=== PATIENT | male | born 1970 | race African-American/Black ===

== ENCOUNTER 2018-06-15 15:03 | Inpatient (IN) | payer MEDICAID ==
[~2018-06-15] VITALS: Ht 185.4 cm; Wt 91.3 kg
[2018-06-15] MEDS ORDERED: FURO40I PO (15:20)
[2018-06-15] MEDS ORDERED: RIVA10 PO (15:20)
[2018-06-15] MEDS ORDERED: KETOROLAC TROMETHAMINE 60 MG/2 ML VIAL IM ONE (15:30)
[2018-06-15] MEDS ORDERED: FURO40 PO (15:32)
[2018-06-15 16:59] LABS: BASOPHILS % (AUTO) 0.5 % (0.0-2.0); EOSINOPHILS % (AUTO) 0.1 % (1.0-6.0); HEMATOCRIT 49.3 % (41-53); LYMPHOCYTES # (AUTO) 1.1 K/uL (1.0-4.8); LYMPHOCYTES % (AUTO) 14.1 % (22.0-44.0); MEAN CORPUSCULAR HGB CONC 32.4 G/dL (31.0-37.0); MEAN CORPUSCULAR VOLUME 86 fL (80-100); MONOCYTES # (AUTO) 0.5 K/uL (0.1-1.0); MONOCYTES % (AUTO) 6.8 % (2.0-9.0); NEUTROPHILS # (AUTO) 6.2 K/uL (1.8-7.7); NEUTROPHILS % (AUTO) 78.5 % (40.0-70.0); RED CELL DISTRIBUTION WIDTH 16.7 % (11.5-14.5)
[2018-06-15 17:12] LABS: CALCIUM, TOTAL 9.5 mg/dL (8.8-10.5); CREATININE 2.17 mg/dL (0.60-1.30); POTASSIUM 4.9 mmol/L (3.5-5.1)
[2018-06-15 17:16] LABS: PROTHROMBIN TIME 30.3 SEC (9.4-11.6)
[2018-06-15 17:36] LABS: ALBUMIN 2.5 g/dL (3.4-5.0); BILIRUBIN,TOTAL 7.5 mg/dL (0.1-1.0); TOTAL PROTEIN, SERUM 7.6 g/dL (6.4-8.2)
[2018-06-15 17:40] LABS: AMPHET/METH SCREEN,URINE POSITIVE (NEGATIVE); BARBITURATE SCREEN, URINE NEGATIVE (NEGATIVE); BENZODIAZEPINES SCREEN,URINE NEGATIVE (NEGATIVE); CANNABINOID SCREEN,URINE NEGATIVE (NEGATIVE); COCAINE SCREEN,URINE NEGATIVE (NEGATIVE); METHADONE SCREEN, URINE NEGATIVE (NEGATIVE); OPIATE SCREEN,URINE POSITIVE (NEGATIVE)
[2018-06-15 17:42] LABS: APPEARANCE,URINE CLEAR (CLEAR); BILIRUBIN,URINE PRELIM. POSITIVE (NEGATIVE); GLUCOSE, URINE (UA) NEGATIVE (NEGATIVE); KETONES,URINE NEGATIVE (NEGATIVE); LEUKOCYTE ESTERASE ,URINE TRACE (NEGATIVE); NITRATE,URINE NEGATIVE (NEGATIVE); OCCULT BLOOD,URINE NEGATIVE (NEGATIVE); PROTEIN,URINE POS 1+ (NEGATIVE)
[2018-06-15 17:43] LABS: RBC,URINE None Seen /HPF (0-2)
[2018-06-15 17:44] LABS: BACTERIA,URINE Few /HPF (None Seen); SQUAMOUS EPITHELIAL CELL,UR Few /LPF (None Seen)
[2018-06-15] MEDS ORDERED: FUROSEMIDE 40 MG/4 ML VIAL IVP ONE (17:45)
[2018-06-15 17:48] LABS: PLATELET COUNT (AUTO) 57 K/uL (150-450)
[2018-06-15 18:03] LABS: D-DIMER > 35.20 mg/L FEU (0.00-0.50)
[2018-06-15 18:12] LABS: PHENCYCLIDINE SCREEN,URINE NEGATIVE (NEGATIVE)
[2018-06-15 19:23] LABS: CREATININE,URINE RANDOM 119.9 mg/dL (30.0-125.0)
[2018-06-15] MEDS ORDERED: ACETAMINOPHEN 325 MG TABLET PO PRN ×2 (20:00→21:00)
[2018-06-15] MEDS ORDERED: 0.9% SODIUM CHLORIDE 10 ML SYRINGE IVP PRN (20:00)
[2018-06-15 20:45] VITALS: BP 91/67
[2018-06-15] MEDS ORDERED: BISACODYL 10 MG RECTAL RECTAL SUPPOSITORY PR PRN (21:00)
[2018-06-15] MEDS ORDERED: ALBUTEROL SULFATE 2.5 MG/0.5 ML NEB SOLUTION NEB PRN (21:00)
[2018-06-15] MEDS ORDERED: HEPARIN SODIUM,PORCINE 5,000 UNITS/ML VIAL SQ SCH (21:00)
[2018-06-15] MEDS ORDERED: MORPHINE SULFATE 2 MG/ML SYRINGE IVP PRN (21:15)
[2018-06-15] MEDS ORDERED: SODIUM CHLORIDE 0.45% 1,000 ML IV ONE (21:15)
[2018-06-15] MEDS: DOCUSATE SODIUM 100 MG CAPSULE PO SCH (21:46)
[2018-06-15 23:37] VITALS: BP 91/61
[2018-06-16 04:15] VITALS: BP 108/60
[2018-06-16 07:39] VITALS: BP 98/62
[2018-06-16] MEDS: DOCUSATE SODIUM 100 MG CAPSULE PO SCH ×2 (08:36→20:10)
[2018-06-16] MEDS: PANTOPRAZOLE SODIUM 40 MG DR TABLET PO SCH (08:36)
[2018-06-16] MEDS ORDERED: ASPIRIN 81 MG CHEWABLE TABLET PO SCH (09:00)
[2018-06-16 09:45] LABS: TROPONIN I 0.09 ng/mL (0.00-0.05)
[2018-06-16 10:26] LABS: BASOPHILS % (AUTO) 0.5 % (0.0-2.0); EOSINOPHILS % (AUTO) 0.1 % (1.0-6.0); HEMOGLOBIN 14.1 g/dL (13.5-17.5); LYMPHOCYTES # (AUTO) 0.8 K/uL (1.0-4.8); LYMPHOCYTES % (AUTO) 9.3 % (22.0-44.0); MEAN CORPUSCULAR HEMOGLOBIN 28.4 pg (26.0-34.0); MEAN CORPUSCULAR HGB CONC 32.9 G/dL (31.0-37.0); MEAN CORPUSCULAR VOLUME 86 fL (80-100); MONOCYTES # (AUTO) 0.3 K/uL (0.1-1.0); MONOCYTES % (AUTO) 3.4 % (2.0-9.0); NEUTROPHILS # (AUTO) 7.2 K/uL (1.8-7.7); PLATELET COUNT (AUTO) 57 K/uL (150-450); RED BLOOD CELL COUNT(AUTO) 4.98 MIL/uL (4.50-5.90); RED CELL DISTRIBUTION WIDTH 16.4 % (11.5-14.5)
[2018-06-16 10:27] LABS: NEUTROPHILS % (AUTO) 86.7 % (40.0-70.0)
[2018-06-16 10:45] LABS: ALBUMIN 2.1 g/dL (3.4-5.0); BILIRUBIN,TOTAL 6.5 mg/dL (0.1-1.0); CREATININE 2.26 mg/dL (0.60-1.30); POTASSIUM 4.4 mmol/L (3.5-5.1); TOTAL PROTEIN, SERUM 6.7 g/dL (6.4-8.2)
[2018-06-16 10:46] LABS: INR 2.5 (0.9-1.1); PROTHROMBIN TIME 25.1 SEC (9.4-11.6)
[2018-06-16 11:20] VITALS: BP 100/60
[2018-06-16] MEDS: SODIUM CHLORIDE 0.9% 1,000 ML IV SCH ×2 (11:42→18:08)
[2018-06-16] MEDS: OxyCODONE HCL/ACETAMINOPHEN 5-325 MG TABLET PO PRN (19:21)
[2018-06-16 19:23] VITALS: BP 108/76
[2018-06-17] MEDS: OxyCODONE HCL/ACETAMINOPHEN 5-325 MG TABLET PO PRN (00:11)
[2018-06-17 00:12] VITALS: BP 103/66
[2018-06-17] MEDS: SODIUM CHLORIDE 0.9% 1,000 ML IV SCH ×3 (04:09→23:44)
[2018-06-17 05:03] VITALS: BP 103/71
[2018-06-17 07:55] VITALS: BP 107/75
[2018-06-17] MEDS: DOCUSATE SODIUM 100 MG CAPSULE PO SCH ×2 (10:36→20:26)
[2018-06-17] MEDS: PANTOPRAZOLE SODIUM 40 MG DR TABLET PO SCH (10:36)
[2018-06-17] MEDS: MORPHINE SULFATE 4 MG/ML SYRINGE IVP PRN ×3 (10:36→20:07)
[2018-06-17 11:42] VITALS: BP 103/73
[2018-06-17 15:43] LABS: CALCIUM, TOTAL 8.8 mg/dL (8.8-10.5); CREATININE 1.81 mg/dL (0.60-1.30); POTASSIUM 4.6 mmol/L (3.5-5.1)
[2018-06-17 15:47] LABS: MAGNESIUM 1.8 mg/dL (1.80-2.40); PHOSPHORUS 3.1 mg/dL (2.5-4.9)
[2018-06-17 15:52] VITALS: BP_SYST 101; BP_SYST 130; BP_DIAS 62; BP_DIAS 75
[2018-06-17 19:36] VITALS: BP 118/94
[2018-06-17] MEDS ORDERED: BISACODYL 10 MG RECTAL RECTAL SUPPOSITORY PR PRN (19:45)
[2018-06-17] MEDS ORDERED: PANTOPRAZOLE SODIUM 40 MG/VIAL IVP ONE (20:01)
[2018-06-17] MEDS ORDERED: BISACODYL 10 MG RECTAL RECTAL SUPPOSITORY PR ONE (20:01)
[2018-06-17] MEDS: PANTOPRAZOLE SODIUM 40 MG/VIAL IVP SCH (20:06)
[2018-06-18] VITALS (7 sets, daily range): BP systolic 105–119; BP diastolic 71–87
[2018-06-18] MEDS: OxyCODONE HCL/ACETAMINOPHEN 5-325 MG TABLET PO PRN (00:09)
[2018-06-18] MEDS: SODIUM CHLORIDE 0.9% 1,000 ML IV SCH ×2 (07:44→16:04)
[2018-06-18 07:51] LABS: CALCIUM, TOTAL 8.8 mg/dL (8.8-10.5); CREATININE 1.7 mg/dL (0.60-1.30); MAGNESIUM 1.8 mg/dL (1.80-2.40); PHOSPHORUS 3.2 mg/dL (2.5-4.9); POTASSIUM 4.9 mmol/L (3.5-5.1); THYROID STIMULATING HORMONE 12.84 uIU/mL (0.36-3.74)
[2018-06-18] MEDS: MORPHINE SULFATE 4 MG/ML SYRINGE IVP PRN (09:00)
[2018-06-18] MEDS: PANTOPRAZOLE SODIUM 40 MG/VIAL IVP SCH ×2 (09:00→21:00)
[2018-06-18] MEDS: PANTOPRAZOLE SODIUM 40 MG DR TABLET PO SCH (09:00)
[2018-06-18] MEDS: DOCUSATE SODIUM 100 MG CAPSULE PO SCH ×2 (09:00→20:17)
[2018-06-18] MEDS ORDERED: LEVOTHYROXINE SODIUM 75 MCG TABLET PO ONE (14:30)
[2018-06-19] MEDS: SODIUM CHLORIDE 0.9% 1,000 ML IV SCH ×2 (00:24→08:44)
[2018-06-19 04:22] VITALS: BP 102/69
[2018-06-19] MEDS: LEVOTHYROXINE SODIUM 75 MCG TABLET PO SCH (06:20)
[2018-06-19 07:31] VITALS: BP 120/87
[2018-06-19] MEDS: DOCUSATE SODIUM 100 MG CAPSULE PO SCH ×2 (09:00→21:09)
[2018-06-19] MEDS: PANTOPRAZOLE SODIUM 40 MG DR TABLET PO SCH (09:00)
[2018-06-19] MEDS: PANTOPRAZOLE SODIUM 40 MG/VIAL IVP SCH ×2 (09:00→21:10)
[2018-06-19 11:53] VITALS: BP 113/76
[2018-06-19 14:04] LABS: EOSINOPHILS % (AUTO) 0 % (1.0-6.0); HEMATOCRIT 42.2 % (41-53); HEMOGLOBIN 13.8 g/dL (13.5-17.5); LYMPHOCYTES # (AUTO) 0.9 K/uL (1.0-4.8); LYMPHOCYTES % (AUTO) 11.3 % (22.0-44.0); MEAN CORPUSCULAR HEMOGLOBIN 28.5 pg (26.0-34.0); MEAN CORPUSCULAR HGB CONC 32.7 G/dL (31.0-37.0); MEAN CORPUSCULAR VOLUME 87 fL (80-100); MONOCYTES # (AUTO) 0.3 K/uL (0.1-1.0); NEUTROPHILS # (AUTO) 6.3 K/uL (1.8-7.7); NEUTROPHILS % (AUTO) 83.7 % (40.0-70.0); PLATELET COUNT (AUTO) 57 K/uL (150-450); RED BLOOD CELL COUNT(AUTO) 4.84 MIL/uL (4.50-5.90); RED CELL DISTRIBUTION WIDTH 17.7 % (11.5-14.5)
[2018-06-19 14:43] LABS: CALCIUM, TOTAL 8.8 mg/dL (8.8-10.5); CREATININE 1.8 mg/dL (0.60-1.30); POTASSIUM 5.7 mmol/L (3.5-5.1)
[2018-06-19 14:49] LABS: ALBUMIN 2.2 g/dL (3.4-5.0); BILIRUBIN,TOTAL 9.5 mg/dL (0.1-1.0); TOTAL PROTEIN, SERUM 7.7 g/dL (6.4-8.2)
[2018-06-19] MEDS ORDERED: SODIUM CHLORIDE 0.9% 250 ML IV ONE (16:35)
[2018-06-19] MEDS: PIPERACILLIN/TAZO 3.375 GM/D5W 50 ML IV SCH ×2 (16:43→21:09)
[2018-06-19 17:11] VITALS: BP 98/56
[2018-06-19] MEDS ORDERED: SODIUM POLYSTYRENE SULFONATE 15 GM/60 ML SUSPENSION BOTTLE PO ONE (17:30)
[2018-06-19] MEDS ORDERED: FUROSEMIDE 20 MG/2 ML VIAL IVP ONE (17:30)
[2018-06-19 19:33] VITALS: BP 120/76
[2018-06-19] MEDS: CARVEDILOL 3.125 MG TABLET PO SCH (21:10)
[2018-06-20 00:18] VITALS: BP 95/77
[2018-06-20] MEDS: PIPERACILLIN/TAZO 3.375 GM/D5W 50 ML IV SCH ×4 (02:52→21:50)
[2018-06-20 04:25] VITALS: BP 110/83
[2018-06-20] MEDS: LEVOTHYROXINE SODIUM 75 MCG TABLET PO SCH (05:32)
[2018-06-20 07:23] VITALS: BP 130/77
[2018-06-20] MEDS: CARVEDILOL 3.125 MG TABLET PO SCH (08:15)
[2018-06-20] MEDS: VITAMIN B COMP/VIT C/FOLIC ACID CAPSULE PO SCH (08:15)
[2018-06-20] MEDS: DOCUSATE SODIUM 100 MG CAPSULE PO SCH ×3 (08:21→21:50)
[2018-06-20] MEDS: PANTOPRAZOLE SODIUM 40 MG/VIAL IVP SCH ×2 (08:21→21:50)
[2018-06-20 08:35] LABS: BASOPHILS % (AUTO) 0.2 % (0.0-2.0); EOSINOPHILS % (AUTO) 0.1 % (1.0-6.0); HEMATOCRIT 38.3 % (41-53); HEMOGLOBIN 12.6 g/dL (13.5-17.5); LYMPHOCYTES # (AUTO) 0.8 K/uL (1.0-4.8); LYMPHOCYTES % (AUTO) 8.3 % (22.0-44.0); MEAN CORPUSCULAR HEMOGLOBIN 28.4 pg (26.0-34.0); MEAN CORPUSCULAR HGB CONC 32.8 G/dL (31.0-37.0); MEAN CORPUSCULAR VOLUME 86 fL (80-100); MONOCYTES # (AUTO) 0.5 K/uL (0.1-1.0); PLATELET COUNT (AUTO) 73 K/uL (150-450); RED BLOOD CELL COUNT(AUTO) 4.43 MIL/uL (4.50-5.90); RED CELL DISTRIBUTION WIDTH 17.1 % (11.5-14.5)
[2018-06-20 08:45] LABS: CALCIUM, TOTAL 8.4 mg/dL (8.8-10.5); CREATININE 1.59 mg/dL (0.60-1.30); POTASSIUM 3.9 mmol/L (3.5-5.1)
[2018-06-20 08:57] LABS: ALBUMIN 1.9 g/dL (3.4-5.0); BILIRUBIN,TOTAL 8.4 mg/dL (0.1-1.0); MAGNESIUM 1.7 mg/dL (1.80-2.40); PHOSPHORUS 2.8 mg/dL (2.5-4.9); TOTAL PROTEIN, SERUM 6.4 g/dL (6.4-8.2)
[2018-06-20] MEDS: ISOSORB DINIT/HYDRALAZINE HCL 20-37.5 MG TABLET PO SCH ×2 (09:00→21:00)
[2018-06-20] MEDS ORDERED: CARVEDILOL 3.125 MG TABLET PO SCH (09:00)
[2018-06-20 09:11] LABS: NEUTROPHILS % (AUTO) 86.4 % (40.0-70.0)
[2018-06-20] MEDS: FUROSEMIDE 40 MG/4 ML VIAL IVP SCH (10:07)
[2018-06-20 10:37] VITALS: BP 110/72
[2018-06-20] MEDS ORDERED: MAGNESIUM SULFATE 1 GM in DEXTROSE 5%-WATER 50 ML IV ONE (10:45)
[2018-06-20 17:29] VITALS: BP 109/66
[2018-06-20] MEDS: CARVEDILOL 6.25 MG TABLET PO SCH ×2 (21:00→21:50)
[2018-06-20 21:30] VITALS: BP 102/72
[2018-06-20] MEDS: HEPARIN SODIUM,PORCINE 5,000 UNITS/ML VIAL SQ SCH (21:51)
[2018-06-20] MEDS ORDERED: SODIUM CHLORIDE 0.9% 100 ML ONE (22:08)
[2018-06-21] MEDS: PIPERACILLIN/TAZO 3.375 GM/D5W 50 ML IV SCH ×2 (02:26→08:38)
[2018-06-21 04:05] VITALS: BP 96/60
[2018-06-21 06:21] LABS: BASOPHILS % (AUTO) 0.1 % (0.0-2.0); EOSINOPHILS % (AUTO) 0.3 % (1.0-6.0); HEMATOCRIT 36.1 % (41-53); HEMOGLOBIN 11.8 g/dL (13.5-17.5); LYMPHOCYTES # (AUTO) 0.7 K/uL (1.0-4.8); LYMPHOCYTES % (AUTO) 9.5 % (22.0-44.0); MEAN CORPUSCULAR HEMOGLOBIN 28.4 pg (26.0-34.0); MEAN CORPUSCULAR HGB CONC 32.7 G/dL (31.0-37.0); MEAN CORPUSCULAR VOLUME 87 fL (80-100); MONOCYTES # (AUTO) 0.3 K/uL (0.1-1.0); MONOCYTES % (AUTO) 4.3 % (2.0-9.0); NEUTROPHILS # (AUTO) 6.2 K/uL (1.8-7.7); PLATELET COUNT (AUTO) 76 K/uL (150-450); RED BLOOD CELL COUNT(AUTO) 4.16 MIL/uL (4.50-5.90); RED CELL DISTRIBUTION WIDTH 17.3 % (11.5-14.5)
[2018-06-21] MEDS: LEVOTHYROXINE SODIUM 75 MCG TABLET PO SCH (06:30)
[2018-06-21 06:41] LABS: ALANINE AMINOTRANSFERASE 291 U/L (12-78); ALBUMIN 1.6 g/dL (3.4-5.0); ALKALINE PHOSPHATASE 117 U/L (46-116); ANION GAP 7 mmol/L (8-16); ASPARTATE AMINOTRANSFERASE 223 U/L (15-37); BILIRUBIN,TOTAL 7.5 mg/dL (0.1-1.0); CALCIUM, TOTAL 7.8 mg/dL (8.8-10.5); CARBON DIOXIDE 29 mmol/L (22-29); CHLORIDE 96 mmol/L (98-107); CREATININE 1.47 mg/dL (0.60-1.30); GLOMERULAR FILTR. RATE CALC > 60 mL/min (>60); GLUCOSE,RANDOM 127 mg/dL (70-110); PHOSPHORUS 2.4 mg/dL (2.5-4.9); POTASSIUM 3.1 mmol/L (3.5-5.1); SODIUM SERUM 132 mmol/L (136-145); UREA NITROGEN, BLOOD 45 mg/dL (7-18)
[2018-06-21 06:42] LABS: NEUTROPHILS % (AUTO) 85.8 % (40.0-70.0)
[2018-06-21] MEDS: POTASSIUM CHL 10 MEQ/WATER 50 ML IV SCH ×2 (08:00→09:00)
[2018-06-21] MEDS ORDERED: POTASSIUM CHLORIDE 20 MEQ ER TABLET PO ONE (08:00)
[2018-06-21] MEDS ORDERED: MAGNESIUM SULFATE 3 GM in DEXTROSE 5%-WATER 100 ML IV ONE (08:00)
[2018-06-21] MEDS: DOCUSATE SODIUM 100 MG CAPSULE PO SCH (09:00)
[2018-06-21] MEDS: CARVEDILOL 6.25 MG TABLET PO SCH (09:00)
[2018-06-21] MEDS: HEPARIN SODIUM,PORCINE 5,000 UNITS/ML VIAL SQ SCH (09:00)
[2018-06-21] MEDS ORDERED: FUROSEMIDE 40 MG/4 ML VIAL IVP SCH (09:00)
[2018-06-21] MEDS: ISOSORB DINIT/HYDRALAZINE HCL 20-37.5 MG TABLET PO SCH (09:00)
[2018-06-21] MEDS: FUROSEMIDE 40 MG/4 ML VIAL IVP SCH (09:00)
[2018-06-21] MEDS: VITAMIN B COMP/VIT C/FOLIC ACID CAPSULE PO SCH (09:00)
[2018-06-21] MEDS ORDERED: POTASSIUM PHOS/SODIUM PHOS MIXTURE 1 POWDER PACKET PO SCH (09:00)
[2018-06-21] MEDS: PANTOPRAZOLE SODIUM 40 MG/VIAL IVP SCH (09:01)
[2018-06-21] MEDS ORDERED: SODIUM CHLORIDE 0.9% 100 ML ONE (09:58)
[2018-06-21 10:32] VITALS: BP 89/63
[2018-06-21 11:26] VITALS: BP 101/73
== END 2018-06-21 14:00 | disposition left against medical advice (07) | DRG 469 ==
LOC: EMS 15:04 → 5S 20:03 → 5N 06-20 21:45
PROVIDERS: ADMIT Internal Medicine; ATTEND Internal Medicine
PROC: 05HY33Z Insertion of Infusion Device into Upper Vein, Percutaneous Approach (ICD-10-PCS; principal; 2018-06-19)
PROC: B54MZZA Ultrasonography of Right Upper Extremity Veins, Guidance (ICD-10-PCS; 2018-06-19)
DX: N17.0 Acute kidney failure with tubular necrosis (principal); E43 Unspecified severe protein-calorie malnutrition; I47.2 Ventricular tachycardia; I50.21 Acute systolic (congestive) heart failure; J18.9 Pneumonia, unspecified organism; D68.9 Coagulation defect, unspecified; D69.59 Other secondary thrombocytopenia; E83.42 Hypomagnesemia; I11.0 Hypertensive heart disease with heart failure; E86.1 Hypovolemia; I27.20 Pulmonary hypertension, unspecified; E87.1 Hypo-osmolality and hyponatremia; M62.82 Rhabdomyolysis; I51.3 Intracardiac thrombosis, not elsewhere classified; I50.9 Heart failure, unspecified; F19.10 Other psychoactive substance abuse, uncomplicated; D64.9 Anemia, unspecified; E03.9 Hypothyroidism, unspecified; E87.5 Hyperkalemia; E87.6 Hypokalemia; F15.10 Other stimulant abuse, uncomplicated; F17.200 Nicotine dependence, unspecified, uncomplicated; G89.29 Other chronic pain; I13.0 Hypertensive heart and chronic kidney disease with heart failure and stage 1 through stage 4 chronic kidney disease, or unspecified chronic kidney disease; I42.9 Cardiomyopathy, unspecified; I48.91 Unspecified atrial fibrillation; J44.9 Chronic obstructive pulmonary disease, unspecified; K74.60 Unspecified cirrhosis of liver; K75.9 Inflammatory liver disease, unspecified; N18.9 Chronic kidney disease, unspecified; R18.8 Other ascites; Z59.0 Homelessness; Z53.21 Procedure and treatment not carried out due to patient leaving prior to being seen by health care provider; Z78.9 Other specified health status; Z91.19 Patient's noncompliance with other medical treatment and regimen; Z79.899 Other long term (current) drug therapy; Z68.26 Body mass index [BMI] 26.0-26.9, adult
CPT/HCPCS: 36245; 71250; 76700; 76770; 76937; 82570; 83735; 83930; 83935; 84100; 84300; 84439; 84443; 84481; 85379; 87015; 87040; 87081; 87206; 87340; 93005; 93306; 93926; 93971; 96372; 96374; 97116; 97162; 97530; C9113; G0378; J1644; J1885; J1940; J2270; J2543; J3475; J3480; J7030; J7050; J7060